=== PATIENT | female | born 1955 | race Hispanic/Latino ===

== ENCOUNTER 2021-05-16 18:53 | Emergency (ER) | payer OTHER ==
[~2021-05-16] VITALS: Ht 149.9 cm; Wt 62.1 kg
[2021-05-16] MEDS ORDERED: KETOROLAC TROMETHAMINE 60 MG/2 ML VIAL IM ONE (19:15)
[2021-05-16] MEDS ORDERED: KETOROLAC TROMETHAMINE 60 MG/2 ML VIAL ONE (19:26)
[2021-05-16] MEDS ORDERED: ULTRAM50 MG PO (20:03)
[2021-05-16] MEDS ORDERED: FLOMAX0.4 MG PO (20:03)
[2021-05-16] MEDS ORDERED: ONDANSETRON ODT4 MG PO (20:03)
[2021-05-16 20:17] VITALS: BP 169/82
== END 2021-05-16 20:17 | disposition home or self-care (01) ==
LOC: FSED 19:10
DX: M54.5 Low back pain (principal); R10.9 Unspecified abdominal pain; N13.2 Hydronephrosis with renal and ureteral calculous obstruction; I10 Essential (primary) hypertension; E11.9 Type 2 diabetes mellitus without complications
CPT/HCPCS: 74176; 81003; 99283; J1885